=== PATIENT | male | born 1985 | race Asian ===

== ENCOUNTER 2019-11-10 11:35 | Emergency (ER) | payer SELFPAY ==
--- NOTE | 2019-11-10 11:45 | Emergency Department Report ---
ED Fever HPI - General Chief Complaint: Upper Respiratory Infection Stated Complaint: LFT EYE PINKY/FLU SYM Time Seen by Provider: 11/10/19 11:42 - History of Present Illness Initial Comments: Mr. Hanson presents with fever chills body aches sore throat pink eye left for one day. +diarrhea Timing/Duration: other (1 day) Fever Severity/Quality: subjective Associated Symptoms: cough, muscle aches, sore throat, other (diarrhea ) ED Review of Systems ROS: Stated complaint: LFT EYE PINKY/FLU SYM Other details as noted in HPI Constitutional: fever, malaise Eyes: other (left pink eye) ENT: throat pain Respiratory: cough ED Past Medical Hx - Past Medical History Additional medical history: AMENIA - Surgical History Past Surgical History?: No - Social History Smoking Status: Current Every Day Smoker Substance Use Type: None - Medications Home Medications: Home Medications Medication Instructions Recorded Confirmed Last Taken Type Oseltamivir [Tamiflu] 75 mg PO BID 5 Days #10 cap 11/10/19 Unknown Rx ED Physical Exam - General Limitations: No Limitations General appearance: alert, in no apparent distress - Head Head exam: Present: atraumatic, normocephalic - Eye Eye exam: Present: normal appearance, conjunctival injection (left eye no discharge) - ENT ENT exam: Present: mucous membranes moist - Neck Neck exam: Present: normal inspection - Respiratory Respiratory exam: Present: normal lung sounds bilaterally. Absent: respiratory distress - Cardiovascular Cardiovascular Exam: Present: regular rate, normal rhythm. Absent: systolic murmur, diastolic murmur, rubs, gallop - GI/Abdominal GI/Abdominal exam: Present: soft, normal bowel sounds - Rectal Rectal exam: Present: deferred - Extremities Exam Extremities exam: Present: normal inspection - Back Exam Back exam: Present: normal inspection - Neurological Exam Neurological exam: Present: alert, oriented X3 - Psychiatric Psychiatric exam: Present: normal affect, normal mood - Skin Skin exam: Present: warm, dry, intact, normal color. Absent: rash ED Medical Decision Making - Medical Decision Making influenza rx: [email or web address] Critical care attestation.: If time is entered above; I have spent that time in minutes in the direct care of this critically ill patient, excluding procedure time. ED Disposition Clinical Impression: Influenza Disposition: DC-01 TO HOME OR SELFCARE Is pt being admited?: No Does the pt Need Aspirin: No Condition: Stable Instructions: Influenza (ED) Prescriptions: Oseltamivir [Tamiflu] 75 mg PO BID 5 Days #10 cap Referrals: RONNY MORGAN MD [Staff Physician] - 3-5 Days Forms: Work/School Release Form(ED)
== END 2019-11-10 12:45 | disposition home or self-care (01) ==
LOC: ED 11:35
DX: J11.1 Influenza due to unidentified influenza virus with other respiratory manifestations (principal); F17.200 Nicotine dependence, unspecified, uncomplicated
CPT/HCPCS: 99281

== ENCOUNTER 2021-03-25 12:29 | Emergency (ER) | payer SELFPAY ==
[2021-03-25 13:29] LABS: Basophils # (Auto) 0.1 K/mm3 (0.0-0.1); Basophils % (Auto) 0.8 % (0.0-1.8); Eosinophils # (Auto) 0.4 K/mm3 (0.0-0.4); Eosinophils % (Auto) 5.6 % (0.0-4.3); Hematocrit 44.2 % (35.5-45.6); Lymphocytes # (Auto) 1.3 K/mm3 (1.2-5.4); Lymphocytes % (Auto) 18.8 % (13.4-35.0); Mean Corpuscular HGB Conc 34 % (32-34); Mean Corpuscular Volume 96 fl (84-94); Monocytes # (Auto) 0.5 K/mm3 (0.0-0.8); Monocytes % (Auto) 7.2 % (0.0-7.3); Platelet Count 243 K/mm3 (140-440); Red Cell Distribution Width 14.1 % (13.2-15.2)
[2021-03-25 13:52] LABS: Alanine Aminotransferase 18 units/L (7-56); Albumin 3.9 g/dL (3.9-5); BUN/Creatinine Ratio 7; Blood Urea Nitrogen 9 mg/dL (9-20); Calcium 9.1 mg/dL (8.4-10.2); Hemolysis Index 3
[2021-03-25 14:43] VITALS: BP 118/72
--- NOTE | 2021-03-26 09:56 | Electrocardiograph Report ---
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
== END 2021-03-25 16:52 | disposition left against medical advice (07) ==
LOC: ED 12:29
DX: R10.9 Unspecified abdominal pain (principal); Z53.21 Procedure and treatment not carried out due to patient leaving prior to being seen by health care provider
CPT/HCPCS: 36415; 80053; 84484; 85025; 93005